=== PATIENT | female | born 1965 | race African-American/Black ===

== ENCOUNTER 2023-05-03 18:47 | Emergency (ER) | payer OTHER ==
[~2023-05-03] VITALS: Ht 162.6 cm; Wt 75.7 kg
[2023-05-03 21:24] LABS: HEMATOCRIT 42.9 % (36.0-45.00); MEAN CORPUSCULAR HEMOGLOBIN 27.7 pg (27.00-32.0); MEAN CORPUSCULAR HGB CONC 32.6 g/dl (32.0-36.0); PLATELET COUNT 282 K/uL (150-450); RED BLOOD COUNT 5.05 M/uL (4.00-6.00); RED CELL DISTRIBUTION WIDTH 14.8 % (11.5-14.5)
[2023-05-03 21:32] LABS: PH,URINE 6.5 (5.0-8.0); URINE APPEARANCE Clear; URINE BILIRRUBIN Negative (NEGATIVE); URINE BLOOD Negative; URINE COLOR Yellow; URINE GLUCOSE Negative (NEGATIVE); URINE LEUKOCYTE Trace; URINE NITRATE Negative; URINE PROTEIN Trace (NEGATIVE)
[2023-05-03 21:33] LABS: INR 1.04; PARTIAL THROMBOPLASTIN TIME 31.3 SECONDS (22.0-34.0); PROTHROMBIN TIME 10.9 SECONDS (9.0-11.5)
[2023-05-03 21:36] LABS: CREATININE SERUM 0.58 mg/dL (0.55-1.02); GFR 106.77; POTASSIUM 3.68 mEq/L (3.5-5.1)
[2023-05-03 21:39] LABS: URINE BACTERIA 323.7 uL (0.0-1933); URINE RBC 31.7 uL (0.0-20.8); URINE WBC 17.6 uL (0.0-23.2)
[2023-05-03] MEDS ORDERED: INTESTINEX680 M1 PO (23:37)
[2023-05-03] MEDS ORDERED: CIPRO500 MG PO (23:37)
[2023-05-03] MEDS ORDERED: PEPCID AC20 MG PO (23:37)
[2023-05-03] MEDS ORDERED: DICY20TA PO (23:37)
[2023-05-03] MEDS ORDERED: METRONIDAZOLE500 MG PO (23:37)
== END 2023-05-04 00:05 | disposition home or self-care (01) ==
LOC: ER 18:48
PROVIDERS: General Practice
DX: K57.32 Diverticulitis of large intestine without perforation or abscess without bleeding (principal); R10.9 Unspecified abdominal pain; Z91.013 Allergy to seafood

== ENCOUNTER 2025-01-23 15:19 | Emergency (ER) | payer OTHER ==
[~2025-01-23] VITALS: Ht 162.6 cm; Wt 77.1 kg
[~2025-01-23 15:19] MED LIST: CIPRO500 MG PO; DICY20TA PO; INTESTINEX680 M1 PO; METRONIDAZOLE500 MG PO; PEPCID AC20 MG PO
[2025-01-23] MEDS ORDERED: KETOROLAC TROMETHAMINE 30 MG VIAL IV STA (17:17)
[2025-01-23 18:28] LABS: BASO % 0.8 % (0.1-1.2); EOS # 0.24 (0.04-0.54); EOS % 2.8 % (0.7-7.0); LYMPH # 3.06 (1.18-3.74); LYMPH % 35.7 % (19.3-53.1); MEAN PLATELET VOLUME 9.70 fl (9.4-12.4); MONO # 0.66 (0.24-0.82); MONO % 7.7 % (4.7-12.5); NEUT # 4.54 (1.56-6.13); NEUT % 52.9 % (34.0-71.1); RED CELL DISTRIBUTION WIDTH 14.4 % (11.6-14.4)
[2025-01-23 18:51] LABS: INR 1.02
[2025-01-23 18:55] LABS: ALT/SGPT 58.0 U/L (12-78); AST/SGOT 36.0 U/L (15-37); BILIRUBIN TOTAL 0.5 mg/dL (0.3-1.2); BUN CREA RATIO 20.0 (7.0-25.0); CREATININE SERUM 0.56 mg/dL (0.55-1.02); GFR 110.8; GLOBULINA 4.0 G/DL (2.4-3.5); GLUCOSE FASTING 87.0 mg/dL (65-100); OSMOLALITY SERUM 284.0 MOSM/KG (275-295)
== END 2025-01-23 22:31 | disposition home or self-care (01) ==
LOC: ER 15:19
DX: R10.32 Left lower quadrant pain (principal); R10.9 Unspecified abdominal pain; Z91.013 Allergy to seafood